=== PATIENT | female | born 1940 ===

== ENCOUNTER 2017-04-15 07:58 | Emergency (ER) | payer MEDICARE ==
[2017-04-15 08:13] VITALS: BP 159/73
--- NOTE | 2017-04-15 08:36 | UC ---
Respiratory Complaint HPI - HPI Summary HPI Summary: 77 yo female with cough and sore throat x 1 week no f/c no CP or SOB hx bronchitis - History of Current Complaint Chief Complaint: UCRespiratory Stated Complaint: COUGH Time Seen by Provider: 04/15/17 08:29 Hx Obtained From: Patient Hx Last Menstrual Period: n/a Onset/Duration: Gradual Onset, Lasting Days Timing: Constant Severity Initially: Moderate Severity Currently: Moderate Pain Intensity: 1 Pain Scale Used: 0-10 Numeric Character: Cough: Nonproductive Aggravating Factors: Deep Breaths Alleviating Factors: Nothing Associated Signs And Symptoms: Positive: Nasal Congestion Related History: Similar Episode/Dx as: - bronchitis - Allergies/Home Medications Allergies/Adverse Reactions: Allergies Allergy/AdvReac Type Severity Reaction Status Date / Time No Known Allergies Allergy Verified 04/15/17 08:13 Home Medications: Home Medications Levothyroxine TAB* [Synthroid 25 MCG TAB*] 1 tab PO DAILY 04/15/17 [History Confirmed 04/15/17] PMH/Surg Hx/FS Hx/Imm Hx Endocrine History Of: Reports: Thyroid Disease - Hypothyroidism Respiratory History Of: Reports: Bronchitis - YEARLY - Surgical History Surgical History: Yes Surgery Procedure, Year, and Place: tubal ligation,1970S. GALLBLADDER, 1980S. RIGHT KNEE SURGERY, [facility] – [place] 1999 - Family History Known Family History: Positive: Hypertension - Social History Alcohol Use: Rare Alcohol Amount: 1 PER WEEK Substance Use Type: None Smoking Status (MU): Never Smoked Tobacco Have You Smoked in the Last Year: No Review of Systems Constitutional: Negative Skin: Negative Eyes: Negative ENT: Sore Throat, Nasal Discharge Respiratory: Cough Cardiovascular: Negative Gastrointestinal: Negative Genitourinary: Negative Motor: Negative Neurovascular: Negative Musculoskeletal: Negative Neurological: Negative Psychological: Negative All Other Systems Reviewed And Are Negative: Yes Physical Exam Triage Information Reviewed: Yes Appearance: Well-Appearing, No Pain Distress, Well-Nourished Vital Signs: Initial Vital Signs Temp 98.2 F 04/15/17 08:10 Pulse 65 04/15/17 08:10 Resp 18 04/15/17 08:10 BP 159/73 04/15/17 08:10 Pulse Ox 97 04/15/17 08:10 Eyes: Positive: Conjunctiva Clear ENT: Positive: Hearing grossly normal, Pharyngeal erythema, Nasal drainage. Negative: Tonsillar exudate, Trismus, Muffled/hoarse voice Neck: Positive: Supple, Nontender, No Lymphadenopathy Respiratory: Positive: Lungs clear, Normal breath sounds, No respiratory distress, No accessory muscle use Cardiovascular: Positive: RRR, No Murmur Musculoskeletal: Positive: ROM Intact, No Edema Neurological: Positive: Alert Psychological Exam: Normal Skin Exam: Normal UC Diagnostic Evaluation - Laboratory O2 Sat by Pulse Oximetry: 97 - normal/not hypoxic Respiratory Course/Dx - Differential Dx/Diagnosis Provider Diagnoses: pharyngitis. bronchitis Discharge - Discharge Plan Condition: Stable Disposition: HOME Prescriptions: Amoxicillin (*) [Amoxicillin 875 MG (*)] 875 mg PO BID #20 tab Patient Education Materials: Acute Bronchitis (ED) Referrals: Mike Webster MD [Primary Care Provider] - If Needed (recheck early next week if not better) Additional Instructions: recheck for worsening symptoms recheck in 1-2 weeks
== END 2017-04-15 09:30 | disposition home or self-care (01) ==
LOC: UCCORT 07:58
DX: J02.9 Acute pharyngitis, unspecified (principal); J40 Bronchitis, not specified as acute or chronic; E03.9 Hypothyroidism, unspecified; Z90.49 Acquired absence of other specified parts of digestive tract
CPT/HCPCS: 99212; G0463

== ENCOUNTER 2018-05-30 07:44 | Emergency (ER) | payer MEDICARE ==
--- NOTE | 2018-05-30 08:22 | UC ---
Truncal Trauma HPI - HPI Summary HPI Summary: pain left ribs x 1 week injury to her left ribs / left chest wall and she was helping her to put up a metal fence pain is in left lower chest wall / lower ribs. no radiation of the pain , pain is sharp , 9 out of 10 increase with movement and deep breathing , mild shortness of breath - History Of Current Complaint Chief Complaint: UCGeneralIllness Stated Complaint: RIB INJURY Time Seen by Provider: 05/30/18 07:58 Hx Obtained From: Patient Hx Last Menstrual Period: n/a Onset/Duration: Sudden Onset, Lasting Weeks - 1, Still Present Onset Of Pain: Immediate Severity Initially: Severe Severity Currently: Moderate Pain Intensity: 9 Mechanism Of Injury: Blunt Trauma, Direct Blow - to her left chest wall Aggravating Factor(s): Movement, Deep Breathing Alleviating factor(s): Nothing Associated Signs And Symptoms: Positive: SOB. Negative: Chest Pain, Cough, Hematuria, Abdominal Pain, Fever, Nausea, Vomiting - Allergies/Home Medications Allergies/Adverse Reactions: Allergies Allergy/AdvReac Type Severity Reaction Status Date / Time No Known Allergies Allergy Verified 05/30/18 07:53 PMH/Surg Hx/FS Hx/Imm Hx - Additional Past Medical History Additional PMH: hepatitis - Surgical History Surgical History: Yes Surgery Procedure, Year, and Place: tubal ligation,. GALLBLADDER, . RIGHT KNEE SURGERY, [facility] – [place] 1999. RIGHT KNEE, 2017. REPAIR DAMAGE AFTER CHILDBIRTH - Family History Known Family History: Positive: Unknown, Hypertension - Social History Alcohol Use: Rare Alcohol Amount: 1 PER WEEK Substance Use Type: None Smoking Status (MU): Never Smoked Tobacco Have You Smoked in the Last Year: No Review of Systems Constitutional: Negative Skin: Negative Eyes: Negative ENT: Negative Respiratory: Shortness Of Breath Cardiovascular: Negative Gastrointestinal: Negative Genitourinary: Negative Is Patient Immunocompromised?: No All Other Systems Reviewed And Are Negative: Yes Physical Exam Triage Information Reviewed: Yes Appearance: Well-Appearing, No Pain Distress, Well-Nourished Vital Signs: Initial Vital Signs Temp 98.1 F 05/30/18 07:54 Pulse 82 05/30/18 07:54 Resp 16 05/30/18 07:54 BP 104/47 05/30/18 07:54 Pulse Ox 97 05/30/18 07:54 Eye Exam: Normal Eyes: Positive: Conjunctiva Clear ENT: Positive: Normal ENT inspection, Hearing grossly normal, Pharynx normal Neck: Positive: Supple, Nontender, No Lymphadenopathy Respiratory: Positive: Chest non-tender, Lungs clear, Normal breath sounds, Other: - tenderness left anterior lower ribs Cardiovascular Exam: Normal Cardiovascular: Positive: RRR, No Murmur, Pulses Normal Abdomen Description: Positive: Nontender, Soft. Negative: CVA Tenderness (R), CVA Tenderness (L), Distended, Guarding Bowel Sounds: Positive: Present Skin Exam: Normal Diagnostics - Laboratory Diagnostic Studies Completed/Ordered: IMPRESSION: #. Nondisplaced fracture LEFT seventh rib adjacent to the costochondral junction. #. Negative for pneumothorax. Truncal Trauma Course/Dx - Differential Dx/Diagnosis Provider Diagnoses: fracture left rib Discharge - Sign-Out/Discharge Documenting (check all that apply): Discharge/Admit/Transfer - Discharge Plan Condition: Stable Disposition: HOME Patient Education Materials: Rib Fracture (ED) Referrals: Jourdan Huertas MD [Primary Care Provider] - 7 Days - Billing Disposition and Condition Condition: STABLE Disposition: Home
--- NOTE | 2018-05-30 08:28 | RAD ---
Indication: LEFT side chest pain following injury last week. Comparison: December 25, 2011 Technique: Dual energy PA chest and 4 view dedicated LEFT rib series. Report: Subjacent to the skin marker indicating the site of clinical concern there is a nondisplaced fracture of the LEFT seventh rib adjacent to the costochondral junction. Negative for pulmonary contusion, pleural effusion, or pneumothorax. Negative for cardiomegaly. Unremarkable central pulmonary vasculature. Mildly tortuous descending thoracic aorta. Gallbladder fossa level surgical clips. IMPRESSION: #. Nondisplaced fracture LEFT seventh rib adjacent to the costochondral junction. #. Negative for pneumothorax.
[2018-05-30 08:41] VITALS: BP 144/85
== END 2018-05-30 08:39 | disposition home or self-care (01) ==
LOC: UCCORT 07:44
DX: S22.32XA Fracture of one rib, left side, initial encounter for closed fracture (principal); X50.9XXA Other and unspecified overexertion or strenuous movements or postures, initial encounter; X50.0XXA Overexertion from strenuous movement or load, initial encounter; Y93.89 Activity, other specified; Y92.9 Unspecified place or not applicable
CPT/HCPCS: 99211; G0463

== ENCOUNTER 2019-09-07 09:12 | Emergency (ER) | payer MEDICARE ==
[2019-09-07 09:46] VITALS: BP 134/66
--- NOTE | 2019-09-07 10:05 | UC ---
Throat Pain/Nasal Travis HPI - HPI Summary HPI Summary: 79-year-old female who has had cold symptoms for one week with an occasional productive cough and postnasal drainage. She states today she is becoming hoarse. She denies any chronic illness other than "autoimmune disorder". - History of Current Complaint Chief Complaint: UCRespiratory Stated Complaint: COUGH,ST,CONGESTION Time Seen by Provider: 09/07/19 10:04 Hx Obtained From: Patient Hx Last Menstrual Period: n/a ?: No Onset/Duration: Gradual Onset Severity: Mild Pain Intensity: 0 Associated Signs & Symptoms: Positive: Fever - Patient thought she had a fever 2 days ago. - Allergies/Home Medications Allergies/Adverse Reactions: Allergies Allergy/AdvReac Type Severity Reaction Status Date / Time No Known Allergies Allergy Verified 09/07/19 09:41 Home Medications: Home Medications Levothyroxine TAB* [Synthroid TAB*] 75 mcg PO DAILY 09/07/19 [History Confirmed 09/07/19] PMH/Surg Hx/FS Hx/Imm Hx Previously Healthy: Yes Endocrine History: Thyroid Disease - Surgical History Surgical History: Yes Surgery Procedure, Year, and Place: Right Knee Arthroscopies, 2017 1999; Cholecystectomy, ~; Tubal Ligation ~tubal ligation,; , 1962 - Family History Known Family History: Positive: Unknown, Hypertension - Social History Occupation: Retired Alcohol Use: Rare Alcohol Amount: 1 PER WEEK Substance Use Type: None Smoking Status (MU): Never Smoked Tobacco Have You Smoked in the Last Year: No Review of Systems All Other Systems Reviewed And Are Negative: Yes Constitutional: Positive: Fever - Patient thought she had a fever 2 days ago. ENT: Positive: Nasal Discharge, Sinus Congestion - Post nasal drainage worsen night Respiratory: Positive: Cough - Occasional productive cough worse at night. Is Patient Immunocompromised?: No Physical Exam Triage Information Reviewed: Yes Appearance: Well-Appearing, No Pain Distress, Well-Nourished Vital Signs: Initial Vital Signs Temp 98 F 09/07/19 09:38 Pulse 84 09/07/19 09:38 Resp 16 09/07/19 09:38 BP 134/66 09/07/19 09:38 Pulse Ox 97 09/07/19 09:38 Vital Signs Reviewed: Yes Eyes: Positive: Conjunctiva Clear ENT: Positive: Pharynx normal, Nasal drainage - Minimal clear nasal coryza., TMs normal, Uvula midline Neck: Positive: Supple, Nontender, No Lymphadenopathy Respiratory: Positive: Lungs clear, Normal breath sounds, No respiratory distress, No accessory muscle use Cardiovascular: Positive: RRR, No Murmur, Pulses Normal, Brisk Capillary Refill Musculoskeletal Exam: Normal Neurological Exam: Normal Psychological Exam: Normal Skin Exam: Normal Throat Pain/Nasal Course/Dx - Course Course Of Treatment: Chest x-ray:FINDINGS: The lungs are clear. There is no pleural effusion. The cardiomediastinal silhouette is within normal limits. There is a surgical clip in the right upper quadrant. Osseous structures are unremarkable. The vestigial right cervical rib is redemonstrated. IMPRESSION: 1. No acute cardiopulmonary process by radiograph. 2. Unchanged vestigial right cervical rib. - Differential Dx/Diagnosis Provider Diagnosis: URI (upper respiratory infection) Discharge ED - Sign-Out/Discharge Documenting (check all that apply): Patient Departure All imaging exams completed and their final reports reviewed: Yes - Discharge Plan Condition: Good Disposition: HOME Patient Education Materials: Upper Respiratory Infection (DC) Referrals: Jourdan Huertas MD [Primary Care Provider] - Additional Instructions: Continue your present medications. Follow-up with your primary care provider if no improvement in 3 or 4 days, especially if he start running a fever. - Billing Disposition and Condition Condition: GOOD Disposition: Home
== END 2019-09-07 11:17 | disposition home or self-care (01) ==
LOC: UCCORT 09:12
DX: J06.9 Acute upper respiratory infection, unspecified (principal); E07.9 Disorder of thyroid, unspecified; Z79.890 Hormone replacement therapy
CPT/HCPCS: 71046; 99211; G0463